=== PATIENT | female | born 1970 | race Caucasian/White ===

== ENCOUNTER 2023-11-12 21:06 | Emergency (ER) | payer MEDICAID ==
[~2023-11-12] VITALS: Ht 160 cm; Wt 68.0 kg
[~2023-11-12 21:06] MED LIST: HYDR-4383 PO
[2023-11-12 21:15] VITALS: BP 129/65; PULSE 86; RESP 16; TEMP 98.2; O2SAT 95
[2023-11-12] MEDS ORDERED: AMOX-580 PO (21:35)
== END 2023-11-12 22:13 | disposition home or self-care (01) ==
LOC: ER 21:07
DX: J32.9 Chronic sinusitis, unspecified (principal); J20.9 Acute bronchitis, unspecified; Z79.899 Other long term (current) drug therapy; Z90.49 Acquired absence of other specified parts of digestive tract
CPT/HCPCS: 99283